=== PATIENT | female | born 2000 | race Caucasian/White ===

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

== ENCOUNTER 2023-04-16 15:33 | Emergency (ER) | payer MEDICAID, OTHER ==
[~2023-04-16] VITALS: Ht 165.1 cm; Wt 59.9 kg
[~2023-04-16 15:33] MED LIST changes: +TRIA15CR4 TP
[2023-04-16 15:38] VITALS: BP_SYST 115; PULSE 69; RESP 18; TEMP 98; O2SAT 99
[2023-04-16] MEDS ORDERED: DIPH25CA83 PO (18:09)
[2023-04-16] MEDS ORDERED: PRED20TA PO (18:09)
[2023-04-16] MEDS ORDERED: DIPHENHYDRAMINE INJ 50 MG/ML VIAL IM ONE (18:15)
[2023-04-16] MEDS ORDERED: predniSONE 20 MG TABLET PO ONE (18:15)
[2023-04-16 18:46] VITALS: BP_SYST 120; PULSE 69; RESP 18; TEMP 98; O2SAT 99
== END 2023-04-16 18:41 | disposition home or self-care (01) ==
LOC: SED 15:33
DX: L50.9 Urticaria, unspecified (principal); R21 Rash and other nonspecific skin eruption; Z79.899 Other long term (current) drug therapy
CPT/HCPCS: 99283; 96372; J7512; J1200